=== PATIENT | male | born 1990 | race Hispanic/Latino ===

== ENCOUNTER 2019-11-16 10:10 | Emergency (ER) | payer SELFPAY ==
[2019-11-16] MEDS ORDERED: LIDOCAINE HCL 1% 20 ML VIAL ONE (11:13)
[2019-11-16] MEDS ORDERED: CEFTRIAXONE SODIUM 2 GM VIAL ONE (11:15)
[2019-11-16] MEDS ORDERED: KETOROLAC TROMETHAMINE 30MG/ML ONE (11:15)
[2019-11-16] MEDS ORDERED: SODIUM CHLORIDE 0.9% 100 ML IV ONE (11:16)
== END 2019-11-16 13:51 | disposition home or self-care (01) ==
LOC: EDH 10:10
DX: L02.31 Cutaneous abscess of buttock (principal)
CPT/HCPCS: 10060; 96361; 96374; 96375; 99284; J0696; J1885